=== PATIENT | male | born 1945 | race Two or more races ===

== ENCOUNTER 2016-11-16 10:02 | Inpatient (IN) | payer MEDICARE, MEDICAID ==
[~2016-11-16] VITALS: Ht 175.3 cm; Wt 65.8 kg
[2016-11-16 10:03] VITALS: BP 135/68
[2016-11-16 10:58] LABS: MEAN CORPUSCULAR HEMOGLOBIN 27.4 PG (27.0-31.0); MEAN CORPUSCULAR VOLUME 88 FL (80-99); MEAN PLATELET VOLUME 6.6 FL (6.5-10.1); PLATELET COUNT 194 K/UL (150-450); RED BLOOD COUNT 4.44 M/UL (4.70-6.10); RED CELL DISTRIBUTION WIDTH 14.9 % (11.6-14.8); WHITE BLOOD COUNT 11.7 K/UL (4.8-10.8)
[2016-11-16 11:39] LABS: TROPONIN I < 0.30 ng/mL (<=0.30)
[2016-11-16 11:41] LABS: APPEARANCE,URINE CLEAR; KETONES,URINE NEGATIVE (NEGATIVE); LEUKOCYTE ESTERASE ,URINE 1+ (NEGATIVE); NITRITE,URINE NEGATIVE (NEGATIVE); PH,URINE 5 (4.5-8.0); PROTEIN,URINE 2+ (NEGATIVE); UROBILINOGEN,URINE NORMAL MG/DL (0.0-1.0)
[2016-11-16 11:42] LABS: ALANINE AMINOTRANSFERASE 32 U/L (3-41); ANION GAP 13 (5-15); ASPARTATE AMINO TRANSFERASE 18 U/L (5-40); CALCIUM 9.5 mg/dL (8.6-10.2); CARBON DIOXIDE 24 mEQ/L (20-30); CHLORIDE 103 mEQ/L (98-107); CREATININE 0.7 mg/dL (0.7-1.2); GLOMERULAR FILTRATION RATE > 60 mL/min (>60); HEMOLYSIS 10; LIPASE 19 U/L (< 60); POTASSIUM 3.5 mEQ/L (3.4-4.9); SODIUM 140 mEQ/L (135-145); TOTAL PROTEIN 6.7 g/dL (6.6-8.7)
[2016-11-16 11:52] LABS: CKMB 3.9 ng/mL (< 6.7)
[2016-11-16] MEDS ORDERED: UNOBMED (12:00)
[2016-11-16 12:24] LABS: BACTERIA,URINE FEW /HPF; SQUAMOUS EPITHELIAL CELL,UR FEW /LPF (NONE/OCC)
[2016-11-16 12:49] LABS: BAND NEUTROPHILS % (MANUAL) 6 % (0-8); BASOPHILS % (MANUAL) 0 % (0-2); EOSINOPHILS % (MANUAL) 0 % (0-3); LYMPHOCYTES % (MANUAL) 3 % (20-45); NEUTROPHILS % (MANUAL) 85 % (45-75); PLATELET ESTIMATE ADEQUATE; PLATELET MORPHOLOGY NORMAL; TOTAL CELLS COUNTED 100
[2016-11-16 12:50] LABS: HYPOCHROMASIA 1+
[2016-11-16 12:51] LABS: ANISOCYTOSIS 1+
--- NOTE | 2016-11-16 14:50 | Infectious Diseases Prog Note ---
Assessment/Plan Problems: (1) UTI (urinary tract infection) Assessment & Plan: will send urine culture , and start ceftriaxon empirically (2) Hypoglycemia Assessment & Plan: recommend endocrinology consult for further eval and management Subjective Allergies: Coded Allergies: No Known Allergies (Unverified , 11/16/16) Objective Vital Signs Last 24 Hour Vital Signs Date Time Temp Pulse Resp B/P (MAP) Pulse Ox O2 Delivery O2 Flow Rate FiO2 11/16/16 10:03 98.1 77 18 135/68 98 Room Air 11/16/16 09:51 98.1 83 16 140/90 98 Room Air Height (Feet): 5 Height (Inches): 9.00 Weight (Pounds): 145 Laboratory Tests Test 11/16/16 10:35 11/16/16 10:43 White Blood Count 11.7 K/UL (4.8-10.8) H Red Blood Count 4.44 M/UL (4.70-6.10) L Hemoglobin 12.2 G/DL (14.2-18.0) L Hematocrit 39.2 % (42.0-52.0) L Mean Corpuscular Volume 88 FL (80-99) Mean Corpuscular Hemoglobin 27.4 PG (27.0-31.0) Mean Corpuscular Hemoglobin Concent 31.0 G/DL (32.0-36.0) L Red Cell Distribution Width 14.9 % (11.6-14.8) H Platelet Count 194 K/UL (150-450) Mean Platelet Volume 6.6 FL (6.5-10.1) Neutrophils (%) (Auto) % (45.0-75.0) Lymphocytes (%) (Auto) % (20.0-45.0) Monocytes (%) (Auto) % (1.0-10.0) Eosinophils (%) (Auto) % (0.0-3.0) Basophils (%) (Auto) % (0.0-2.0) Differential Total Cells Counted 100 Neutrophils % (Manual) 85 % (45-75) H Lymphocytes % (Manual) 3 % (20-45) L Monocytes % (Manual) 6 % (1-10) Eosinophils % (Manual) 0 % (0-3) Basophils % (Manual) 0 % (0-2) Band Neutrophils 6 % (0-8) Platelet Estimate Adequate Platelet Morphology Normal Hypochromasia 1+ Anisocytosis 1+ Sodium Level 140 mEQ/L (135-145) Potassium Level 3.5 mEQ/L (3.4-4.9) Chloride Level 103 mEQ/L (98-107) Carbon Dioxide Level 24 mEQ/L (20-30) Anion Gap 13 (5-15) Blood Urea Nitrogen 22 mg/dL (7-23) Creatinine 0.7 mg/dL (0.7-1.2) Estimat Glomerular Filtration Rate > 60 mL/min (>60) Glucose Level 138 mg/dL (74-106) H Calcium Level 9.5 mg/dL (8.6-10.2) Total Bilirubin 0.5 mg/dL (0.0-1.2) Aspartate Amino Transf (AST/SGOT) 18 U/L (5-40) Alanine Aminotransferase (ALT/SGPT) 32 U/L (3-41) Alkaline Phosphatase 126 U/L (40-129) Total Creatine Kinase 48 U/L (38-174) Creatine Kinase MB 3.9 ng/mL (< 6.7) Creatine Kinase MB Relative Index 8.1 Troponin I < 0.30 ng/mL (<=0.30) Total Protein 6.7 g/dL (6.6-8.7) Albumin 3.5 g/dL (3.5-5.2) Globulin 3.2 g/dL Albumin/Globulin Ratio 1.0 (1.0-2.7) Lipase 19 U/L (< 60) Urine Color Yellow Urine Appearance Clear Urine pH 5 (4.5-8.0) Urine Specific [place] 1.020 (1.005-1.035) Urine Protein 2+ (NEGATIVE) H Urine Glucose (UA) 4+ (NEGATIVE) H Urine Ketones Negative (NEGATIVE) Urine Occult Blood 1+ (NEGATIVE) H Urine Nitrite Negative (NEGATIVE) Urine Bilirubin Negative (NEGATIVE) Urine Urobilinogen Normal MG/DL (0.0-1.0) Urine Leukocyte Esterase 1+ (NEGATIVE) H Urine RBC 5-10 /HPF (0 - 0) H Urine WBC 2-4 /HPF (0 - 0) Urine Squamous Epithelial Cells Few /LPF (NONE/OCC) Urine Bacteria Few /HPF (NONE) Jose Stallworth M.D. Nov 16, 2016 14:50
[2016-11-16 16:00] VITALS: BP 110/71
--- NOTE | 2016-11-16 16:08 | Emergency Room Report ---
History of Present Illness General Chief Complaint: Altered Level of Consciousness Source: Patient Present Illness HPI 70 -year-old male presents ED for evaluation. Patient brought in for altered mental status. Noticed by this morning. EMS states that Accu-Chek was critically low the 20s. Patient given glucagon with symptoms improved. Patient is now more awake alert. states that patient is a diabetic and often takes his medication forgets to eat. Patient takes short acting and long- acting insulin. doesnt remember the dosages. Denies fevers or chills. No other aggravating or leading factors. Denies any other associated Allergies: Coded Allergies: No Known Allergies (Unverified , 11/16/16) Patient History Past Medical History: DM, CAD Past Surgical History: none Pertinent Family History: none Social History: Denies: smoking, alcohol use, drug use Immunizations: UTD Reviewed Nursing Documentation: PMH: Agreed, PSxH: Agreed Nursing Documentation-PMH Hx Cardiac Problems: Yes - angioplasty Hx Hypertension: Yes Hx Pacemaker: No Hx Asthma: No Hx COPD: No Hx Diabetes: Yes Hx Cancer: No Hx Neurological Problems: No Hx Cerebrovascular Accident: No Hx Transient Ischemic Attacks: No Hx Dementia: No Hx Alzheimer's Disease: No Hx Parkinson's Disease: No Hx Meningitis: Yes Hx Encephalitis: No Hx Seizures: No Hx Epilepsy: No Hx Multiple Sclerosis: No Hx Cerebral Palsy: No Hx Amyotrophic Lat Sclerosis: No Hx Guillian-Gates Syndrome: No Hx Paralysis: No Hx Peripheral Neuropathy: No Hx Spinal Cord Injury: No Hx Head Trauma: No Hx Traumatic Brain Injury: No Hx Memory Loss: No Hx Concentration Difficulty: No Hx Speech Problem: No Hx Tremors: No Hx Vertigo: Yes Hx Dizziness: No Hx Syncope: No Hx Headaches: No Hx Aphasia: Yes Hx Dysphasia: No Hx Numbness: No Hx Weakness: Yes - generalize Hx Fatigue: No Hx Neurologic Surgery: No Hx Brain Shunt: No Review of Systems All Other Systems: negative except mentioned in HPI Physical Exam Vital Signs Date Time Temp Pulse Resp B/P (MAP) Pulse Ox O2 Delivery O2 Flow Rate FiO2 11/16/16 09:51 98.1 83 16 140/90 98 Room Air Sp02 EP Interpretation: reviewed, normal General Appearance: no apparent distress, alert, GCS 15, non-toxic Head: normocephalic, atraumatic Eyes: bilateral eye normal inspection, bilateral eye PERRL ENT: hearing grossly normal, normal pharynx, no angioedema, normal voice Neck: full range of motion, supple/symm/no masses Respiratory: chest non-tender, lungs clear, normal breath sounds, speaking full sentences Cardiovascular #1: regular rate, rhythm, no edema Cardiovascular #2: 2+ carotid (R), 2+ carotid (L), 2+ radial (R), 2+ radial (L) , 2+ dorsalis pedis (R), 2+ dorsalis pedis (L) Gastrointestinal: normal bowel sounds, non tender, soft, non-distended, no guarding, no rebound Rectal: deferred Genitourinary: normal inspection, no CVA tenderness Musculoskeletal: back normal, non-tender Neurologic: alert, oriented x3, responsive, motor strength/tone normal, sensory intact, speech normal Psychiatric: judgement/insight normal, memory normal, mood/affect normal, no suicidal/homicidal ideation Reflexes: 3+ bicep (R), 3+ bicep (L), 3+ tricep (R), 3+ tricep (L), 3+ knee (R) , 3+ knee (L) Skin: normal color, no rash, warm/dry, well hydrated Lymphatic: no adenopathy Medical Decision Making Diagnostic Impression: Primary Impression: hypoglycemia Additional Impression: Altered level of consciousness ER Course Hospital Course 70-year-old male presenting to ED with generalized weakness, low FS in field Differential diagnoses include: dehyration, sepsis, hypoglycemia Clinical course Patient placed on stretcher. On monitor technician. After initial history and physical I ordered labs, food Labs-glucose 138, electrolytes ok, minimal leukocytosis, hb/hct stable Because patient is on long-acting medications, it is possible that he can again become hypoglycemic. Patient recommended to be admitted. Patient agrees to plan. Case discussed with Dr. Harding and he agreed to accept the patient to his service for further care and support i. I feel this is a highly complex case requiring extensive working including EKG/Rhythm strip, Xray/CT/US, Blood/urine lab work, repeat exams while in ED, and administration of strong opiates/narcotics for pain control, admission to hospital or close patient follow up. diagnosis - hypoglycemia, ALOC admitted to floor in serious condition Labs Test 11/16/16 10:35 11/16/16 10:43 White Blood Count 11.7 K/UL (4.8-10.8) Red Blood Count 4.44 M/UL (4.70-6.10) Hemoglobin 12.2 G/DL (14.2-18.0) Hematocrit 39.2 % (42.0-52.0) Mean Corpuscular Volume 88 FL (80-99) Mean Corpuscular Hemoglobin 27.4 PG (27.0-31.0) Mean Corpuscular Hemoglobin Concent 31.0 G/DL (32.0-36.0) Red Cell Distribution Width 14.9 % (11.6-14.8) Platelet Count 194 K/UL (150-450) Mean Platelet Volume 6.6 FL (6.5-10.1) Neutrophils (%) (Auto) % (45.0-75.0) Lymphocytes (%) (Auto) % (20.0-45.0) Monocytes (%) (Auto) % (1.0-10.0) Eosinophils (%) (Auto) % (0.0-3.0) Basophils (%) (Auto) % (0.0-2.0) Differential Total Cells Counted 100 Neutrophils % (Manual) 85 % (45-75) Lymphocytes % (Manual) 3 % (20-45) Monocytes % (Manual) 6 % (1-10) Eosinophils % (Manual) 0 % (0-3) Basophils % (Manual) 0 % (0-2) Band Neutrophils 6 % (0-8) Platelet Estimate Adequate Platelet Morphology Normal Hypochromasia 1+ Anisocytosis 1+ Sodium Level 140 mEQ/L (135-145) Potassium Level 3.5 mEQ/L (3.4-4.9) Chloride Level 103 mEQ/L (98-107) Carbon Dioxide Level 24 mEQ/L (20-30) Anion Gap 13 (5-15) Blood Urea Nitrogen 22 mg/dL (7-23) Creatinine 0.7 mg/dL (0.7-1.2) Estimat Glomerular Filtration Rate > 60 mL/min (>60) Glucose Level 138 mg/dL (74-106) Calcium Level 9.5 mg/dL (8.6-10.2) Total Bilirubin 0.5 mg/dL (0.0-1.2) Aspartate Amino Transf (AST/SGOT) 18 U/L (5-40) Alanine Aminotransferase (ALT/SGPT) 32 U/L (3-41) Alkaline Phosphatase 126 U/L (40-129) Total Creatine Kinase 48 U/L (38-174) Creatine Kinase MB 3.9 ng/mL (< 6.7) Creatine Kinase MB Relative Index 8.1 Troponin I < 0.30 ng/mL (<=0.30) Total Protein 6.7 g/dL (6.6-8.7) Albumin 3.5 g/dL (3.5-5.2) Globulin 3.2 g/dL Albumin/Globulin Ratio 1.0 (1.0-2.7) Lipase 19 U/L (< 60) Urine Color Yellow Urine Appearance Clear Urine pH 5 (4.5-8.0) Urine Specific [place] 1.020 (1.005-1.035) Urine Protein 2+ (NEGATIVE) Urine Glucose (UA) 4+ (NEGATIVE) Urine Ketones Negative (NEGATIVE) Urine Occult Blood 1+ (NEGATIVE) Urine Nitrite Negative (NEGATIVE) Urine Bilirubin Negative (NEGATIVE) Urine Urobilinogen Normal MG/DL (0.0-1.0) Urine Leukocyte Esterase 1+ (NEGATIVE) Urine RBC 5-10 /HPF (0 - 0) Urine WBC 2-4 /HPF (0 - 0) Urine Squamous Epithelial Cells Few /LPF (NONE/OCC) Urine Bacteria Few /HPF (NONE) Last Vital Signs Date Time Temp Pulse Resp B/P (MAP) Pulse Ox O2 Delivery O2 Flow Rate FiO2 11/16/16 14:30 130/80 11/16/16 14:00 98.1 82 19 98 Room Air Status: improved Disposition: ADMITTED INPATIENT Condition: Serious Referrals: NOT CHOSEN PRIYANKA/,REFERRING (PCP) OBDULIA CRENSHAW M.D. Nov 16, 2016 16:08
[2016-11-16] MEDS: cefTRIAXone 1 GM in D5W 55 ML IVPB SCH (17:56)
[2016-11-16 20:00] VITALS: BP 126/81
[2016-11-16] MEDS: NovoLOG Insulin Flexpen SUBQ SCH (21:15)
[2016-11-17] VITALS (7 sets, daily range): BP systolic 100–127; BP diastolic 62–78
--- NOTE | 2016-11-17 00:15 | Consultation ---
DATE OF CONSULTATION: INFECTIOUS DISEASE CONSULTATION CONSULTING PHYSICIAN: Jose Stallworth M.D. REQUESTING PHYSICIAN: Gregor Harding M.D. REASON FOR CONSULTATION: Urinary tract infection. HISTORY OF PRESENT ILLNESS: The patient is a 70-year-old male, presented to [facility] [place] with altered mental status after he took unknown amount of insulin the night before. The patient was found to be hypoglycemic by the paramedics with sugar in the 20s. He was given glucagon and his symptoms improved, became more alert and oriented. The patient was brought into the emergency room for further evaluation and management and I was consulted because of his urinalysis showed evidence of urine infection. The patient denied any fever or chills. No dysuria or hematuria. No other associated symptoms. Cannot provide full history at this point since he still seems to be confused a bit. PAST MEDICAL HISTORY: Significant for diabetes and coronary artery disease. PAST SURGICAL HISTORY: Negative. MEDICATIONS: The patient is on dextrose and Tylenol at this point. ALLERGIES: He has no known drug allergy. SOCIAL HISTORY: The patient denies tobacco, alcohol, and drug abuse. FAMILY HISTORY: Noncontributory. REVIEW OF SYSTEMS: Unable to obtain at this point. PHYSICAL EXAMINATION: VITAL SIGNS: Temperature 97.5 degrees, pulse 88, respirations 19, blood pressure 110/71, and O2 saturation 97% on room air. GENERAL: An elderly male, lying in bed, awake, alert, but confused, not in distress. HEENT: Normocephalic and atraumatic. Pupils reactive to light. Dry oral mucosa. NECK: Supple. No lymphadenopathy. CARDIOVASCULAR: Regular rate and rhythm. No murmur. LUNGS: Showed diminished breathing sounds, but no wheezing or rhonchi. ABDOMEN: Soft, nontender, and nondistended. Positive bowel sounds. No hepatosplenomegaly. No ascites. EXTREMITY: No edema or cyanosis. LABORATORY DATA: Labs showed white count of 11.7, hemoglobin of 12.2, and platelet count of 194,000. BUN of 22 and creatinine of 0.7. AST of 18, ALT of 32, and alkaline phosphatase of 126. Urinalysis showed +1 leukocyte esterase, WBC to 4, and few bacteria. ASSESSMENT AND RECOMMENDATION: 1. Urinary tract infection. We will send urine culture and start the patient on ceftriaxone empirically. 2. Hypoglycemia. Recommend Endocrinology consult for further evaluation and management of his poorly controlled diabetes. 3. Diabetes mellitus, poorly controlled. Continue insulin sliding scale. Monitor sugar as needed. Jose Stallworth M.D. DR: ANNIA JOB#: [id number] CC:
[2016-11-17] MEDS: NovoLOG Insulin Flexpen SUBQ SCH ×5 (06:12→20:53)
--- NOTE | 2016-11-17 06:45 | Consultation ---
DATE OF CONSULTATION: 11/16/2016 HEMATOLOGY/ONCOLOGY CONSULTATION CONSULTING PHYSICIAN: Asif Amador M.D. REQUESTING PHYSICIAN: Gregor Harding M.D. REASON FOR CONSULTATION: Evaluation of anemia and lymphopenia. IDENTIFICATION DATA: Dear Dr. Harding, The patient is a pleasant 71-year-old male with a past medical history significant for diabetes mellitus and CAD, at this time presents to the ER with altered mental status noticed by the . Accu-Chek is critically low in the 20s. Glucagon given. Symptoms improved. The patient is currently more awake and oriented. states the patient is a diabetic and often takes medication and forgets to eat. The patient was noted to have lymphopenia. Therefore, Hematology service was consulted for further evaluation and treatment. PAST MEDICAL HISTORY: Diabetes mellitus and CAD. PAST SURGICAL HISTORY: Angioplasty. SOCIAL HISTORY: No alcohol, tobacco, or illicit drug use. FAMILY HISTORY: Noncontributory. REVIEW OF SYSTEMS: Constitutional: No fever, chills, or night sweats. Skin: No rashes, bumps, or itching. HEENT: No headache, hearing or vision changes. Breasts: No lumps, pain, or discharge. Pulmonary: No cough, sputum, or shortness of breath. Gastrointestinal: No nausea, vomiting, or diarrhea. Genitourinary: No dysuria, frequency, or urgency. Musculoskeletal: No joint swelling, muscle pain, or trauma. PHYSICAL EXAMINATION: GENERAL: The patient is in no acute distress. VITAL SIGNS: Reviewed. PULMONARY: Decreased breath sounds. CARDIOVASCULAR: Regular rate. No S3 or S4. ABDOMEN: Soft, nontender, and nondistended. EXTREMITIES: There is 1+ edema. LABORATORY DATA: WBC of 11.7, hemoglobin 12.2, hematocrit 39, and platelet count of 194,000, lymphocytes 3%, and neutrophils 85%. AST of 18, ALT of 32, and alkaline phosphatase of 126. Troponin was less than 0.03. ASSESSMENT AND PLAN: 1. Lymphopenia, likely related to the patient's history of neutrophilia, at this time concerning for potential sepsis. Antibiotic management if necessary as per Infection Diseases service. 2. Anemia secondary to chronic disease. Anemia workup currently not needed unless further drops. 3. Leukocytosis, likely secondary to potential sepsis versus reactive process. 4. Hypoglycemia. Recommend Endocrinology consult. Continue to monitor. 5. Urinary tract infection, on antibiotics as per Infection Diseases service. I appreciate the consultation. Asif Amador M.D. DR: ANDREW JOB#: [id number] CC:
[2016-11-17 07:06] LABS: BASOPHILS % (AUTO) 0.8 % (0.0-2.0); EOSINOPHILS % (AUTO) 0.6 % (0.0-3.0); LYMPHOCYTES % (AUTO) 27.9 % (20.0-45.0); MEAN CORPUSCULAR HEMOGLOBIN 27.9 PG (27.0-31.0); MEAN CORPUSCULAR HGB CONC 31.7 G/DL (32.0-36.0); MEAN CORPUSCULAR VOLUME 88 FL (80-99); MEAN PLATELET VOLUME 6.7 FL (6.5-10.1); MONOCYTES % (AUTO) 10.5 % (1.0-10.0); NEUTROPHILS % (AUTO) 60.2 % (45.0-75.0); PLATELET COUNT 218 K/UL (150-450); RED BLOOD COUNT 3.96 M/UL (4.70-6.10); RED CELL DISTRIBUTION WIDTH 15.1 % (11.6-14.8); WHITE BLOOD COUNT 5.5 K/UL (4.8-10.8)
[2016-11-17 07:17] LABS: ALANINE AMINOTRANSFERASE 30 U/L (3-41); ALBUMIN/GLOBULIN RATIO 1.2 (1.0-2.7); ANION GAP 11 (5-15); ASPARTATE AMINO TRANSFERASE 15 U/L (5-40); CALCIUM 9.1 mg/dL (8.6-10.2); CARBON DIOXIDE 27 mEQ/L (20-30); CHLORIDE 102 mEQ/L (98-107); CREATININE 0.8 mg/dL (0.7-1.2); HEMOLYSIS 1; POTASSIUM 4.1 mEQ/L (3.4-4.9); SODIUM 140 mEQ/L (135-145)
--- NOTE | 2016-11-17 08:31 | Consultation ---
DATE OF CONSULTATION: 11/16/2016 ENDOCRINOLOGY CONSULTATION REFERRING PHYSICIAN: Gregor Harding M.D. REASON FOR CONSULTATION: Diabetes management. HISTORY OF PRESENT ILLNESS: The patient is a poor historian. The patient is a 70-year-old male with past medical history of insulin-dependent diabetes. He states that he takes only insulin and pain medication at home. He is not sure what kind of insulin and home medication he takes, but he remembers that he took insulin last time, but he did not eat much. This morning he started to have symptoms of hypoglycemia. The blood sugar at the scene was 21, called 911. He was brought to the emergency department and treated with dextrose. After treatment with glucagon, the patient's symptoms improved, became more alert. He states that he takes long-acting and short acting insulin, but does not remember the name of the dosage. Prior to that, the patient was feeling fine. PAST MEDICAL HISTORY: Diabetes and coronary artery disease. History of meningitis. PAST SURGICAL HISTORY: Cardiac angioplasty. SOCIAL HISTORY: No smoking, alcohol or drug abuse. The patient lives at home with . FAMILY HISTORY: No diabetes. REVIEW OF SYSTEMS: A 12-point review of system was performed, the pertinent positives and negatives are as mentioned in the history of present illness. PHYSICAL EXAMINATION: VITAL SIGNS: Blood pressure is 140/90, pulse of 83, temperature of 98.1 degrees, and respiratory rate of 16. HEENT: Pupils are equal and reactive to light and accommodation. Sclerae are anicteric. NECK: No JVD. No thyromegaly. No bruit. LUNGS: Clear. HEART: Regular rate and rhythm. ABDOMEN: Positive bowel sounds. Soft. EXTREMITIES: No clubbing or cyanosis. Positive for edema. LABORATORY AND DIAGNOSTIC DATA: WBC 11.7, hemoglobin 12, hematocrit 39.2 and platelet count of 194,000. Chemistry shows sodium of 140, potassium 3.5, chloride 102, bicarbonate 24, BUN 22, creatinine 0.7 and glucose of 138. Troponin is negative. Lipase is normal. POC glucose value is 146-279. DIAGNOSES: 1. Hypoglycemia secondary to over insulinization. 2. Diabetes, on insulin. 3. Coronary artery disease. PLAN: The patient's home insulin dosage is unknown. I will start the patient blood glucose monitoring before meals and at bedtime, diabetes diet, sliding scale insulin with NovoLog. hemoglobin A1c to be obtained. Insulin dosage will be adjusted according to BG values. Thank you, Dr. Harding, for the courtesy of this consultation. Jw Moncada M.D. DR: NEAL JOB#: [id number] CC: KELSI
[2016-11-17] MEDS ORDERED: Milk of Magnesia 30ml Ud ORAL PRN (13:45)
[2016-11-17] MEDS ORDERED: Fleet's Enema 133ml RECTAL PRN (13:45)
[2016-11-17] MEDS: Bisacodyl EC 5mg tab ORAL SCH (13:47)
--- NOTE | 2016-11-17 15:09 | Infectious Diseases Prog Note ---
Assessment/Plan Problems: (1) UTI (urinary tract infection) Assessment & Plan: await urine culture , continue ceftriaxon empirically (2) Hypoglycemia Assessment & Plan: recommend endocrinology consult for further eval and management (3) Constipation Assessment & Plan: continue laxatives and enema Subjective Constitutional: Reports: no symptoms HEENT: Reports: no symptoms Respiratory: Reports: no symptoms Breasts: Reports: no symptoms Cardiovascular: Reports: no symptoms Gastrointestinal/Abdominal: Reports: constipation Genitourinary: Reports: no symptoms Neurologic: Reports: no symptoms Psychiatric: Reports: no symptoms Skin: Reports: no symptoms Endocrine: Reports: no symptoms Allergies: Coded Allergies: No Known Allergies (Unverified , 11/16/16) Objective Vital Signs Last 24 Hour Vital Signs Date Time Temp Pulse Resp B/P (MAP) Pulse Ox O2 Delivery O2 Flow Rate FiO2 11/17/16 12:20 98.1 91 22 109/77 93 Room Air 11/17/16 08:33 97.2 87 20 101/68 93 Room Air 11/17/16 08:12 97.2 87 20 101/68 93 Room Air 11/17/16 04:00 98.2 90 18 105/64 98 Room Air 11/17/16 00:00 98.4 91 19 100/62 98 Room Air 11/16/16 20:00 98.7 96 18 126/81 98 Room Air 11/16/16 16:00 97.5 88 19 110/71 97 Room Air Height (Feet): 5 Height (Inches): 9.00 Weight (Pounds): 145 General Appearance: WD/WN, no acute distress HEENT: normocephalic, atraumatic, anicteric, mucous membranes moist, PERRL Respiratory/Chest: chest wall non-tender, lungs clear, normal breath sounds, no respiratory distress, no accessory muscle use Cardiovascular: normal peripheral pulses, normal rate, regular rhythm, no gallop/murmur, no JVD Abdomen: normal bowel sounds, soft, non tender, no organomegaly, non distended , no mass, no scars Genitourinary: normal external genitalia Extremities: no cyanosis, no clubbing Laboratory Tests Test 11/17/16 05:30 White Blood Count 5.5 K/UL (4.8-10.8) # Red Blood Count 3.96 M/UL (4.70-6.10) L Hemoglobin 11.1 G/DL (14.2-18.0) L Hematocrit 34.9 % (42.0-52.0) L Mean Corpuscular Volume 88 FL (80-99) Mean Corpuscular Hemoglobin 27.9 PG (27.0-31.0) Mean Corpuscular Hemoglobin Concent 31.7 G/DL (32.0-36.0) L Red Cell Distribution Width 15.1 % (11.6-14.8) H Platelet Count 218 K/UL (150-450) Mean Platelet Volume 6.7 FL (6.5-10.1) Neutrophils (%) (Auto) 60.2 % (45.0-75.0) Lymphocytes (%) (Auto) 27.9 % (20.0-45.0) Monocytes (%) (Auto) 10.5 % (1.0-10.0) H Eosinophils (%) (Auto) 0.6 % (0.0-3.0) Basophils (%) (Auto) 0.8 % (0.0-2.0) Sodium Level 140 mEQ/L (135-145) Potassium Level 4.1 mEQ/L (3.4-4.9) Chloride Level 102 mEQ/L (98-107) Carbon Dioxide Level 27 mEQ/L (20-30) Anion Gap 11 (5-15) Blood Urea Nitrogen 21 mg/dL (7-23) Creatinine 0.8 mg/dL (0.7-1.2) Estimat Glomerular Filtration Rate mL/min (>60) Glucose Level 160 mg/dL (74-106) H Calcium Level 9.1 mg/dL (8.6-10.2) Total Bilirubin 0.5 mg/dL (0.0-1.2) Aspartate Amino Transf (AST/SGOT) 15 U/L (5-40) Alanine Aminotransferase (ALT/SGPT) 30 U/L (3-41) Alkaline Phosphatase 112 U/L (40-129) Total Protein 6.0 g/dL (6.6-8.7) L Albumin 3.3 g/dL (3.5-5.2) L Globulin 2.7 g/dL Albumin/Globulin Ratio 1.2 (1.0-2.7) Current Medications Medications (Trade) Dose Ordered Sig/Ashley Route PRN Reason Start Time Stop Time Status Last Admin Dose Admin Acetaminophen (Tylenol) 650 mg Q4H PRN ORAL Mild Pain/Temp > 100.5 11/16/16 15:00 12/16/16 14:59 Bisacodyl (Dulcolax) 10 mg DAILY ORAL 11/17/16 13:45 12/17/16 13:44 11/17/16 13:47 Ceftriaxone Sodium 1 gm/ Dextrose 55 ml @ 110 mls/hr Q24H IVPB 11/16/16 16:30 11/23/16 16:29 11/16/16 17:56 Dextrose (Dextrose 50%) STAT PRN IV Hypoglycemia 11/16/16 18:00 12/16/16 17:59 Dextrose (Dextrose 50%) STAT PRN IV Hypoglycemia 11/17/16 13:45 12/17/16 13:44 Insulin Aspart (NovoLOG) BEFORE MEALS AND HS SUBQ 11/16/16 21:00 12/16/16 20:59 11/17/16 11:28 Insulin Aspart (NovoLOG) 6 units NOVOTIAC SUBQ 11/17/16 16:50 12/17/16 16:49 Insulin Detemir (Levemir) 18 units BEDTIME SUBQ 11/17/16 21:00 12/17/16 20:59 Magnesium Hydroxide (Mom) 30 ml DAILYPRN PRN ORAL Constipation 11/17/16 13:45 12/17/16 13:44 Sennosides (Senokot) 8.6 mg DAILY ORAL 11/17/16 13:45 12/17/16 13:44 11/17/16 13:47 Sodium Phosphate (Fleet's Sodium Phosl Enema) 133 ml DAILY PRN RECTAL CONSTIPATION 11/17/16 13:45 12/17/16 13:44 Jose Stallworth M.D. Nov 17, 2016 15:09
--- NOTE | 2016-11-17 16:13 | Cardiology Report ---
APPROVED REPORT EKG Measurement Heart [id number] Normal sinus rhythm Possible Left atrial enlargement Right axis deviation Abnormal ECG
[2016-11-17] MEDS: cefTRIAXone 1 GM in D5W 55 ML IVPB SCH (16:52)
--- NOTE | 2016-11-17 17:38 | General Progress Note ---
Assessment/Plan Assessment/Plan A AND P 1. 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 2. Anemia secondary to chronic disease. Anemia workup currently not needed unless further drops. 3. Leukocytosis, likely secondary to urinary tract infection --> has resolved, on abx per id service 4. Impaired glucose. See Endocrinology consult. Continue to monitor. Subjective Constitutional: Reports: no symptoms HEENT: Reports: no symptoms Cardiovascular: Reports: no symptoms Respiratory: Reports: no symptoms Gastrointestinal/Abdominal: Reports: no symptoms Genitourinary: Reports: no symptoms Neurologic/Psychiatric: Reports: no symptoms Endocrine: Reports: no symptoms Hematologic/Lymphatic: Reports: no symptoms Allergies: Coded Allergies: No Known Allergies (Unverified , 11/16/16) Subjective nad Objective Last 24 Hour Vital Signs Date Time Temp Pulse Resp B/P (MAP) Pulse Ox O2 Delivery O2 Flow Rate FiO2 11/17/16 16:56 98.3 91 18 118/78 90 Room Air 11/17/16 12:20 98.1 91 22 109/77 93 Room Air 11/17/16 08:33 97.2 87 20 101/68 93 Room Air 11/17/16 08:12 97.2 87 20 101/68 93 Room Air 11/17/16 04:00 98.2 90 18 105/64 98 Room Air 11/17/16 00:00 98.4 91 19 100/62 98 Room Air 11/16/16 20:00 98.7 96 18 126/81 98 Room Air Intake and Output 11/17/16 11/18/16 19:00 07:00 Intake Total 300 ml Output Total 375 ml Balance -75 ml Intake Oral 300 ml Output Urine Total 375 ml Laboratory Tests 11/17/16 05:30: White Blood Count 5.5#, Red Blood Count 3.96L, Hemoglobin 11.1L, Hematocrit 34.9L, Mean Corpuscular Volume 88, Mean Corpuscular Hemoglobin 27.9, Mean Corpuscular Hemoglobin Concent 31.7L, Red Cell Distribution Width 15.1H, Platelet Count 218, Mean Platelet Volume 6.7, Neutrophils (%) (Auto) 60.2, Lymphocytes (%) (Auto) 27.9, Monocytes (%) (Auto) 10.5H, Eosinophils (%) (Auto) 0.6, Basophils (%) (Auto) 0.8, Sodium Level 140, Potassium Level 4.1, Chloride Level 102, Carbon Dioxide Level 27, Anion Gap 11, Blood Urea Nitrogen 21, Creatinine 0.8, Estimat Glomerular Filtration Rate , Glucose Level 160H, Calcium Level 9.1, Total Bilirubin 0.5, Aspartate Amino Transf (AST/SGOT) 15, Alanine Aminotransferase (ALT/SGPT) 30, Alkaline Phosphatase 112, Total Protein 6.0L, Albumin 3.3L, Globulin 2.7, Albumin/Globulin Ratio 1.2 Height (Feet): 5 Height (Inches): 9.00 Weight (Pounds): 145 General Appearance: no apparent distress EENT: normal ENT inspection Neck: normal alignment Cardiovascular: normal peripheral pulses Respiratory/Chest: chest wall non-tender Edema: no edema noted Pedal (L), no edema noted Pedal (R) 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
[2016-11-17] MEDS: Levemir Flexpen SUBQ SCH (20:52)
[2016-11-18] VITALS: BP 121/72
[2016-11-18 04:00] VITALS: BP 122/79
[2016-11-18] MEDS: NovoLOG Insulin Flexpen SUBQ SCH ×7 (05:57→22:14)
[2016-11-18 07:53] LABS: OTHERS PATHOLOGIST COMMENT
[2016-11-18 08:26] VITALS: BP 134/76
[2016-11-18] MEDS: Bisacodyl EC 5mg tab ORAL SCH (08:56)
[2016-11-18 11:43] VITALS: BP 135/86
--- NOTE | 2016-11-18 15:30 | History and Physical Report ---
DATE OF ADMISSION: 11/16/2016 HISTORY OF PRESENT ILLNESS: The patient comes here because of hypoglycemia and leukocytosis. The patient has diabetes and takes insulin. The patient claims that he took too much insulin by accident and has also been confused and that is why the patient was admitted to the hospital. The patient has also complaints of constipation. No nausea, vomiting, or diarrhea. Denies fever or chills. No abdominal pain. No shortness of breath. Denies cough. Denies dizziness. PAST MEDICAL HISTORY: Significant for NIDDM, constipation, peripheral vascular disease, BPH, hernia, and coronary artery disease. PAST SURGICAL HISTORY: Right AKA, prostate surgery, hernia repair, and PTCA. MEDICATIONS: Insulin, cannot give us the detail . ALLERGIES: No known allergies. SOCIAL HISTORY: The patient denies smoking. No history of drug or alcohol abuse. FAMILY HISTORY: History of diabetes. REVIEW OF SYSTEMS: HEENT: Denies headaches. Respiratory: Denies shortness of breath. Denies cough. Cardiovascular: Denies chest pain. Gastrointestinal: Denies nausea, vomiting, or diarrhea. Reports constipation. Extremities: Denies pain. Central Nervous System: Denies change in vision or speech pattern. PHYSICAL EXAMINATION: VITAL SIGNS: Temperature 97.2 degrees, pulse 70, blood pressure 132/73. HEENT: PERRLA. NECK: Supple. No lymphadenopathy. CHEST: Clear to auscultation. GASTROINTESTINAL: Soft, nontender, and nondistended. No organomegaly. EXTREMITIES: No edema. Reflexes are equal on both sides. Has right above knee amputation. He is able to move all extremities. LABORATORY DATA: WBC 11.7, hemoglobin 12.2, and platelets 194,000. Sodium 140, potassium 3.5, BUN of 22, creatinine of 0.7, and glucose of 138. ASSESSMENT AND PLAN: 1. Hypoglycemia. The patient took, according to him, too much insulin by accident. 2. The patient's altered mental status is most likely due to hypoglycemia. 3. The patient has constipation. 4. History of coronary artery disease. 5. I have asked , Dr. Huynh, and Dr. Stallworth to see the patient for the leukocytosis, hypoglycemia, and for the borderline low potassium. The patient will need hydration and electrolyte replacement. Ali Ally Harding DR: Tammy JOB#: [id number] CC:
--- NOTE | 2016-11-18 15:53 | Infectious Diseases Prog Note ---
Assessment/Plan Problems: (1) UTI (urinary tract infection) Assessment & Plan: await urine culture , continue ceftriaxon empirically (2) Hypoglycemia Assessment & Plan: recommend endocrinology consult for further eval and management (3) Constipation Assessment & Plan: continue laxatives and enema Subjective Constitutional: Reports: no symptoms HEENT: Reports: no symptoms Respiratory: Reports: no symptoms Gastrointestinal/Abdominal: Reports: no symptoms Genitourinary: Reports: no symptoms Allergies: Coded Allergies: No Known Allergies (Unverified , 11/16/16) Objective Vital Signs Last 24 Hour Vital Signs Date Time Temp Pulse Resp B/P (MAP) Pulse Ox O2 Delivery O2 Flow Rate FiO2 11/18/16 11:43 98.8 87 20 135/86 97 Room Air 11/18/16 08:26 98.1 97 22 134/76 98 Room Air 11/18/16 04:00 97.7 91 18 122/79 95 Room Air 11/18/16 00:00 97.0 89 18 121/72 96 Room Air 11/17/16 20:00 97.4 93 18 127/78 98 Room Air 11/17/16 16:56 98.3 91 18 118/78 90 Room Air Height (Feet): 5 Height (Inches): 9.00 Weight (Pounds): 145 General Appearance: WD/WN, no acute distress HEENT: normocephalic, atraumatic, anicteric Respiratory/Chest: chest wall non-tender, lungs clear, normal breath sounds, no respiratory distress Cardiovascular: normal peripheral pulses, normal rate, regular rhythm, no JVD Abdomen: normal bowel sounds, soft, non tender, no organomegaly, non distended , no mass Extremities: no cyanosis, no clubbing Skin: no rash, no lesions Neurologic/Psychiatric: alert, oriented x 3 Microbiology Date/Time Source Procedure Growth Status 11/16/16 21:10 Urine,Clean Catch Urine Culture - Preliminary Gram Negative Bacillus 1 Gram Negative Bacillus 2 Resulted Current Medications Medications (Trade) Dose Ordered Sig/Ashley Route PRN Reason Start Time Stop Time Status Last Admin Dose Admin Acetaminophen (Tylenol) 650 mg Q4H PRN ORAL Mild Pain/Temp > 100.5 11/16/16 15:00 12/16/16 14:59 Bisacodyl (Dulcolax) 10 mg DAILY ORAL 11/17/16 13:45 12/17/16 13:44 11/18/16 08:56 Ceftriaxone Sodium 1 gm/ Dextrose 55 ml @ 110 mls/hr Q24H IVPB 11/16/16 16:30 11/23/16 16:29 11/17/16 16:52 Dextrose (Dextrose 50%) STAT PRN IV Hypoglycemia 11/16/16 18:00 12/16/16 17:59 Dextrose (Dextrose 50%) STAT PRN IV Hypoglycemia 11/17/16 13:45 12/17/16 13:44 Insulin Aspart (NovoLOG) BEFORE MEALS AND HS SUBQ 11/16/16 21:00 12/16/16 20:59 11/18/16 11:46 Insulin Aspart (NovoLOG) 6 units NOVOTIAC SUBQ 11/17/16 16:50 12/17/16 16:49 11/18/16 11:47 Insulin Detemir (Levemir) 18 units BEDTIME SUBQ 11/17/16 21:00 12/17/16 20:59 11/17/16 20:52 Magnesium Hydroxide (Mom) 30 ml DAILYPRN PRN ORAL Constipation 11/17/16 13:45 12/17/16 13:44 11/17/16 17:51 Sennosides (Senokot) 8.6 mg DAILY ORAL 11/17/16 13:45 12/17/16 13:44 11/18/16 08:56 Sodium Phosphate (Fleet's Sodium Phosl Enema) 133 ml DAILY PRN RECTAL CONSTIPATION 11/17/16 13:45 12/17/16 13:44 11/17/16 20:35 Jose Stallworth M.D. Nov 18, 2016 15:53
[2016-11-18 16:00] VITALS: BP 128/76
[2016-11-18] MEDS: cefTRIAXone 1 GM in D5W 55 ML IVPB SCH (16:40)
[2016-11-18 20:17] VITALS: BP 115/71
--- NOTE | 2016-11-18 21:43 | General Progress Note ---
Assessment/Plan Problem List: (1) Hypoglycemia ICD Codes: E16.2 - Hypoglycemia, unspecified SNOMED: 291773090 (2) Altered level of consciousness ICD Codes: R40.4 - Transient alteration of awareness SNOMED: 2707364 (3) Constipation ICD Codes: K59.00 - Constipation, unspecified SNOMED: 72870880 Status: progressing Assessment/Plan uti hypogylcemia is improving afebrile dc planning bg improved Subjective ROS Limited/Unobtainable: Yes Allergies: Coded Allergies: No Known Allergies (Unverified , 11/16/16) Objective Last 24 Hour Vital Signs Date Time Temp Pulse Resp B/P (MAP) Pulse Ox O2 Delivery O2 Flow Rate FiO2 11/18/16 20:17 96.9 83 18 115/71 97 Room Air 11/18/16 16:00 98.1 91 21 128/76 98 Room Air 11/18/16 11:43 98.8 87 20 135/86 97 Room Air 11/18/16 08:26 98.1 97 22 134/76 98 Room Air 11/18/16 04:00 97.7 91 18 122/79 95 Room Air 11/18/16 00:00 97.0 89 18 121/72 96 Room Air Intake and Output 11/18/16 11/19/16 19:00 07:00 Intake Total 1075 ml Output Total 300 ml Balance 775 ml Intake Oral 1075 ml Output Urine Total 300 ml # Voids 2 1 # Bowel Movements 1 1 Height (Feet): 5 Height (Inches): 9.00 Weight (Pounds): 145 General Appearance: WD/WN Cardiovascular: normal rate Respiratory/Chest: lungs clear Abdomen: non tender Gregor Harding MD Nov 18, 2016 21:43
[2016-11-18] MEDS: Levemir Flexpen SUBQ SCH (22:15)
[2016-11-19 00:50] VITALS: BP 102/68
[2016-11-19 04:46] VITALS: BP 121/80
[2016-11-19] MEDS: NovoLOG Insulin Flexpen SUBQ SCH ×3 (06:30→13:13)
[2016-11-19 08:00] VITALS: BP 101/60
[2016-11-19] MEDS: Bisacodyl EC 5mg tab ORAL SCH (08:08)
--- NOTE | 2016-11-19 08:48 | General Progress Note ---
Assessment/Plan Assessment/Plan A AND P 1. 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 --> resolved 2. Anemia secondary to chronic disease. --> will order work up 3. Leukocytosis, likely secondary to urinary tract infection --> has resolved, on abx per id service 4. Impaired glucose. See Endocrinology consult. Continue to monitor. Subjective Date patient seen: Nov 18, 2016 Constitutional: Reports: no symptoms HEENT: Reports: no symptoms Cardiovascular: Reports: no symptoms Respiratory: Reports: no symptoms Gastrointestinal/Abdominal: Reports: no symptoms Genitourinary: Reports: no symptoms Neurologic/Psychiatric: Reports: no symptoms Endocrine: Reports: no symptoms Hematologic/Lymphatic: Reports: anemia Allergies: Coded Allergies: No Known Allergies (Unverified , 11/16/16) Subjective afebrile, no bleeding Objective Last 24 Hour Vital Signs Date Time Temp Pulse Resp B/P (MAP) Pulse Ox O2 Delivery O2 Flow Rate FiO2 11/19/16 04:46 97.3 87 19 121/80 94 Room Air 11/19/16 00:50 97.5 89 17 102/68 92 Room Air 11/18/16 20:17 96.9 83 18 115/71 97 Room Air 11/18/16 16:00 98.1 91 21 128/76 98 Room Air 11/18/16 11:43 98.8 87 20 135/86 97 Room Air Height (Feet): 5 Height (Inches): 9.00 Weight (Pounds): 145 General Appearance: no apparent distress EENT: normal ENT inspection Neck: normal inspection Cardiovascular: regular rhythm Respiratory/Chest: chest wall non-tender Extremities: normal range of motion Edema: no edema noted Pedal (L), no edema noted Pedal (R) Asif Amador Nov 19, 2016 08:48
[2016-11-19] MEDS ORDERED: NOVOLOG100 UNIT/3 SUBQ ×2 (10:51→10:53)
[2016-11-19] MEDS ORDERED: NovoLOG Insulin Flexpen SUBQ SCH (11:50)
[2016-11-19 12:00] VITALS: BP 109/78
[2016-11-19] MEDS ORDERED: LEVEMIR100 UNIT/1 SUBQ (13:55)
[2016-11-19] MEDS ORDERED: Levemir Flexpen SUBQ SCH (21:00)
--- NOTE | 2016-11-20 13:20 | General Progress Note ---
Assessment/Plan Assessment/Plan A AND P 1. 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 --> resolved 2. Anemia secondary to chronic disease. --> was cancelled due to discharge. Monitor counts as outpatient. 3. Leukocytosis, likely secondary to urinary tract infection --> has resolved, on abx per id service 4. Impaired glucose. See Endocrinology consult. Continue to monitor. Subjective Date patient seen: Nov 19, 2016 Constitutional: Reports: no symptoms HEENT: Reports: no symptoms Cardiovascular: Reports: no symptoms Respiratory: Reports: no symptoms Gastrointestinal/Abdominal: Reports: no symptoms Genitourinary: Reports: no symptoms Neurologic/Psychiatric: Reports: no symptoms Endocrine: Reports: no symptoms Allergies: Coded Allergies: No Known Allergies (Unverified , 11/16/16) Subjective no major changes Objective Height (Feet): 5 Height (Inches): 9.00 Weight (Pounds): 145 General Appearance: no apparent distress EENT: normal ENT inspection Neck: normal alignment Extremities: non-tender Edema: trace edema 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
--- NOTE | 2016-11-22 09:32 | Discharge Summary ---
Discharge Summary Hospital Course Date of Admission Nov 16, 2016 at 10:47 Date of Discharge Nov 19, 2016 at 14:40 Admitting Diagnosis hypoglycemia HPI Michael Dejesus is a 71 year old male who was admitted on Nov 16, 2016 at 10:47 for Hypoglycemia Hospital Course dc summary #[id number] Discharge Medications Continued Medications: Insulin Aspart* (Novolog*) 100 Unit/1 Ml Insuln.pen 0 SUBQ AC+HS, #1 EA 0 Refills Insulin Detemir (Levemir) 100 Unit/1 Ml Vial 15 SUBQ BEDTIME, VIAL Discharge Condition Upon Discharge: stable Discharge Disposition Patient was discharged to Home with Home Health(06) Discharge Diagnoses: Discharge Instructions Discharge Instructions Special Instructions I have been assigned to complete a D/C Summary on this account. I was not involved in the patient management Nona Gavin NP (Vanchtein) Nov 22, 2016 09:32
--- NOTE | 2016-11-23 00:15 | Discharge Summary 2 SIG ---
DATE OF ADMISSION: 11/16/2016 DATE OF DISCHARGE: 11/19/2016 REASON FOR ADMISSION: 71-year-old male with history of diabetes, coronary artery disease, angioplasty, and hypertension, was presented for altered mental status, noted by his earlier in the morning. Paramedics were called. Blood sugar in the field was in the 20s. The patient was emergently treated with glucagon. The patient significantly improved after glucagon administration. Upon evaluation in the emergency department, the patient was awake and alert. The patient reported taking long and short-acting insulin, and according to , after taking insulin he forgets to eat. The patient did not remember the dose of the insulin, he was taking. No fever, no chills. Vital signs were unremarkable. Mild anemia. Blood pressure was stable. Mild leukocytosis- 11.7. Urinalysis revealed +1 leukocyte esterase, no pyuria, no bacteria, +4 glucose, and +2 protein. Due to the fact that the patient was on a long-acting insulin, there was a concern for further possible hypoglycemia. The patient was admitted for further management. ADMITTING DIAGNOSES: 1. Altered level of consciousness secondary to hypoglycemia. 2. Hypoglycemia. 3. Diabetes mellitus. 4. Coronary artery disease. 5. Possible urinary tract infection. HOSPITAL COURSE: The patient was admitted. Endocrinology consult was requested. Dose of the insulin medications were not known. The patient was started on diabetic diet., Accu-Cheks AC and HS. Hemoglobin A1c - 11.1, definitely not at goal. The patient was started on short and long acting insulin. The dose was titrated by women's basketball coach . The patient was discharged on 5 units short-acting insulin before meals as well as 15 units of long-acting Levemir once a day. The patient was educated on diabetic diet as well as the signs and symptoms of hypoglycemia. Hematology seen the patient for anemia. The patient has anemia of chronic disease. Anemia minimal at this time. No need for anemia workup as per fleet administrative assistant, just close monitoring. ID followed the patient for possible urinary tract infection. The patient started on empiric antibiotics, however urine culture revealed mixed gram-positive organism with colony count 10 to 20. Antibiotic discontinued. The patient was stable for discharge. FINAL DIAGNOSES: 1. Hypoglycemia (likely secondary to inappropriate dose of insulin). 2. Altered level of consciousness secondary to acute encephalopathy, due to hypoglycemia. 3. Diabetes mellitus. 4. Coronary artery disease. 5. Anemia of chronic disease. DISCHARGE MEDICATIONS: See medication reconciliation list. DISCHARGE INSTRUCTIONS: The patient was discharged home with home health services to follow. Follow up with the primary medical doctor on a regular basis. Gregor Harding M.D. I have been assigned to dictate discharge summary on this account and I was not involved in the patient's management. Nona Amandakisha NArian DR: Cheryl JOB#: [id number] CC: [email or web address]
== END 2016-11-19 14:40 | disposition home health service (06) | DRG 918 ==
LOC: EDBD 10:02 → EMR 10:40 → 3E 10:47 → EDBEDREQ 11:43
DX: T38.3X1A Poisoning by insulin and oral hypoglycemic [antidiabetic] drugs, accidental (unintentional), initial encounter (principal); E11.649 Type 2 diabetes mellitus with hypoglycemia without coma; N39.0 Urinary tract infection, site not specified; D63.8 Anemia in other chronic diseases classified elsewhere; K59.00 Constipation, unspecified; I25.10 Atherosclerotic heart disease of native coronary artery without angina pectoris; D72.810 Lymphocytopenia; Z79.4 Long term (current) use of insulin; Z98.61 Coronary angioplasty status; Y92.019 Unspecified place in single-family (private) house as the place of occurrence of the external cause
CPT/HCPCS: 36415; 80053; 81003; 82550; 82553; 82962; 83036; 83690; 84484; 85007; 85025; 85060; 87086; 93005; 99285; J1815; S5561